=== PATIENT | male | born 1980 | race African-American/Black ===

== ENCOUNTER 2020-01-27 09:05 | Emergency (ER) | payer OTHER, BC ==
[2020-01-27 09:12] VITALS: BP 131/74
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
== END 2020-01-27 10:22 | disposition home or self-care (01) ==
LOC: ER 09:05
DX: S16.1XXA Strain of muscle, fascia and tendon at neck level, initial encounter (principal); M79.18 Myalgia, other site; V49.40XA Driver injured in collision with unspecified motor vehicles in traffic accident, initial encounter; Z79.899 Other long term (current) drug therapy
CPT/HCPCS: 99283